=== PATIENT | male | born 1950 | race Caucasian/White ===

== ENCOUNTER → 2017-01-11 | Outpatient (CLI) | payer MEDICARE ==
[~2017-01-11] MED LIST: AMLO5TAB2 PO; ASPI-110 PO; ATOR40TA16 PO; BACT800T5 PO; CEPH-460 PO; HYDR-3516 PO; LISI10TA3 PO; METH500T3 PO
[2017-01-11 07:20] LABS: BLOOD UREA NITROGEN 15 MG/DL (7-18)
[2017-01-11 07:21] LABS: ALT (GPT) 25 U/L (12-78); ANION GAP 8 MEQ/L (5-15); AST (GOT) 18 U/L (15-37); BICARBONATE 28.4 MEQ/L (21.0-32.0); CHLORIDE 107 MEQ/L (98-107); GLOMERULAR FILTRATION RATE 64 ML/MIN (>89); GLUCOSE,FASTING 118 MG/DL (74-99); SODIUM (NA) 143 MEQ/L (136-145)
[2017-01-11 07:23] LABS: ALKALINE PHOSPHATASE 89 U/L (45-117); CREATINE KINASE 111 U/L (39-308); HDL CHOLESTEROL 44.8 MG/DL (40.0-60.0); LDL CHOLESTEROL 31 MG/DL (0-99); TOTAL BILIRUBIN ADULT 0.5 MG/DL (0.2-1.0)
== END ==
LOC: CLAB 06:33
PROVIDERS: ATTEND Internal Medicine Cardiovascular Disease
DX: E78.5 Hyperlipidemia, unspecified (principal); I10 Essential (primary) hypertension
CPT/HCPCS: 36415; 80053; 80061; 82550

== ENCOUNTER 2017-01-25 09:06 | Emergency (ER) | payer MEDICARE ==
[~2017-01-25] VITALS: Ht 180.3 cm; Wt 100.0 kg
[~2017-01-25 09:06] MED LIST changes: -BACT800T5 PO; -CEPH-460 PO
[2017-01-25 09:10] VITALS: BP 134/86; PULSE 59; RESP 16; TEMP 98.6; O2SAT 98
[2017-01-25] MEDS ORDERED: BACT800T5 PO (09:37)
--- NOTE | 2017-01-25 09:40 | PD ---
HPI Chief Complaint: Lump, Cyst, Hernia Time Seen by Provider: 09:31 Travel History International Travel<30 days: No Contact w/Intl Traveler<30days: No Traveled to known affect area: No History of Present Illness HPI Patient is a 66-year-old male presenting to emergency for evaluation of right neck swelling. Patient states it started out as a pea-sized growth which it had been for several months, since then over the last 2-3 days to discuss and larger. Patient states it feels uncomfortable but denies any significant pain. He denies any dysphagia but notices it when he swallows. He denies any recent illnesses, fevers, chills, head colds. PFSH Past Medical History Hx Anticoagulant Therapy: Yes (ASPIRIN 81 MG ) Asthma: No Blood Disorders: No Anxiety: No Depression: No Cancer: No Cardiovascular Problems: Yes (CABG) High Cholesterol: Yes Chemotherapy: No Chest Pain: Yes COPD: No Diabetes: No Diminished Hearing: Yes (right ear) Endocrine: No GERD: Yes Genitourinary: No Hepatitis: Yes (HEP A- 2002) Hypertension: Yes Immune Disorder: No Kidney Stones: Yes Musculoskeletal: No Neurologic: No Psychiatric: No Reproductive: No Respiratory: No Pneumonia: Yes Radiation Therapy: No Sleep Apnea: No Thyroid Disease: No Past Surgical History Cardiac Surgery: Yes (CABG april 12, 2015) Tonsillectomy: Yes Other Surgery: Yes (lithotripsy-1979) Social History Alcohol Use: No Tobacco Use: No Substance Use: No Allergies-Medications (Allergen,Severity, Reaction): Coded Allergies: Penicillin (Verified Allergy, Severe, 11/05/16) Shellfish (Verified Allergy, Unknown, 11/05/16) Uncoded Allergies: Silk Tape (Allergy, Severe, Irritation, 04/15/15) Reported Meds & Prescriptions Reported Meds & Active Scripts Active Hydrocodone-Acetaminophen 5-325 mg Tab 1 Tab PO Q4H PRN Methocarbamol 500 Mg Tab 750 Mg PO Q8HR PRN Reported Atorvastatin (Atorvastatin Calcium) 40 Mg Tab 40 Mg PO HS Aspirin 81 (Aspirin) 81 Mg Tabdr 81 Mg PO DAILY Amlodipine (Amlodipine Besylate) 5 Mg Tab 5 Mg PO DAILY Lisinopril 10 Mg Tab 10 Mg PO DAILY Review of Systems Except as stated in HPI: all other systems reviewed are Neg General / Constitutional: No: Fever, Chills Skin: Positive Lumps Physical Exam Narrative GENERAL: Well-nourished, well-developed patient. SKIN: Focused skin assessment warm/dry. HEAD: Normocephalic. Right submandibular lymphadenopathy. Airway is patent. EYES: No scleral icterus. No injection or drainage. NECK: Supple, trachea midline. No JVD or lymphadenopathy. CARDIOVASCULAR: Regular rate and rhythm without murmurs, gallops, or rubs. RESPIRATORY: Breath sounds equal bilaterally. No accessory muscle use. GASTROINTESTINAL: Abdomen soft, non-tender, nondistended. MUSCULOSKELETAL: No cyanosis, or edema. BACK: Nontender without obvious deformity. No CVA tenderness. Data Data Last Documented VS Vital Signs Date Time Temp Pulse Resp B/P Pulse Ox O2 Delivery O2 Flow Rate FiO2 01/25/17 09:10 98.6 59 16 134/86 98 [facility] Medical Decision Making Medical Screen Exam Complete: Yes Emergency Medical Condition: Yes Interpretation(s) Vital Signs Date Time Temp Pulse Resp B/P Pulse Ox O2 Delivery O2 Flow Rate FiO2 01/25/17 09:10 98.6 59 16 134/86 98 Differential Diagnosis Lymphadenitis versus blocked salivary gland versus parotitis Narrative Course Patient is a 66-year-old male presenting to emergency for evaluation of right neck swelling. Patient has historically had a pea-sized since Saturday discussed larger and slightly uncomfortable. Physical examination appears consistent with an enlarged lymph node however blocked salivary gland cannot be excluded so patient will be treated for both possible diagnosis is. He was advised to obtain hard sour candies to increase saliva production. He will also be given a prescription for antibiotics. He was advised to follow-up with his primary doctor for possible biopsy if the swelling did not improve with antibiotic therapy. He was given the flyer for the [place] [facility] if he is unable to get in with his primary. Patient verbalized understanding of these instructions. Patient is stable for discharge. Diagnosis Primary Impression: Lymphadenitis Referrals: Primary Care Physician 1 week Patient Instructions: General Instructions, Lymphadenopathy (ED), Parotid Duct Obstruction (ED) Additional Instructions: Suck on hard sour candies such as lemon drops to increase saliva production Complete full course of antibiotics as directed Follow-up with your primary doctor Return to emergency department for any new or worsening symptoms Med/Other Pt SpecificInfo: Prescription(s) given Scripts Sulfamethoxazole-Trimethoprim (Bactrim DS)800-160 Mg Tab1 Tab PO BID #20 TAB Ref 0 Prov:Zee Bueno 01/25/17 Disposition: 01 DISCHARGE HOME Condition: Stable Zee Bueno Jan 25, 2017 09:39
--- NOTE | 2017-01-25 09:47 | PD ---
Data Data Last Documented VS Vital Signs Date Time Temp Pulse Resp B/P Pulse Ox O2 Delivery O2 Flow Rate FiO2 01/25/17 09:10 98.6 59 16 134/86 98 MDM Supervised Visit with SCARLET: Yes Narrative Course I, Dr. Fan, have reviewed the advance practice practioner's documentation and am in agreement, met with the patient face to face, made the diagnosis, and the medical decision making was done by me. *My assessment and Findings: 66-year-old male here with right neck swelling. Pea-sized area on the right submandibular region increasing over the last 2-3 days. Now approximately 2-3 cm on exam. Only minimally tender to palpation. It is not erythematous. The floor the mouth is soft. Differential includes sialoadenitis versus lymphadenopathy versus cancer. Patient will be discharged home with instructions for sore candies, lemon drops and antibiotics. Outpatient PCP follow-up for biopsy if this is not improved to rule out cancer. Diagnosis Primary Impression: Lymphadenitis Referrals: Primary Care Physician 1 week Patient Instructions: General Instructions, Lymphadenopathy (ED), Parotid Duct Obstruction (ED) Departure Forms: Tests/Procedures Additional Instruction: Suck on hard sour candies such as lemon drops to increase saliva production Complete full course of antibiotics as directed Follow-up with your primary doctor Return to emergency department for any new or worsening symptoms Scripts Sulfamethoxazole-Trimethoprim (Bactrim DS)800-160 Mg Tab1 Tab PO BID #20 TAB Ref 0 Prov:MylesZee 01/25/17 Disposition: 01 DISCHARGE HOME Condition: Stable Rachelle Fan MD Jan 25, 2017 09:47
== END 2017-01-25 09:49 | disposition home or self-care (01) ==
LOC: NEPD 09:06
DX: I88.9 Nonspecific lymphadenitis, unspecified (principal)
CPT/HCPCS: 99283

== ENCOUNTER 2017-02-01 07:21 | Emergency (ER) | payer MEDICARE ==
[~2017-02-01] VITALS: Ht 180.3 cm; Wt 112.0 kg
[~2017-02-01 07:21] MED LIST changes: +BACT800T5 PO
[2017-02-01 07:24] VITALS: BP 187/84; PULSE 52; RESP 17; TEMP 99; O2SAT 97
[2017-02-01] MEDS ORDERED: SODIUM CHLOR 0.9% 1000 ML INJ 1,000 ML IV ONE (08:00)
[2017-02-01 08:19] LABS: AUTOMATED NEUTROPHIL # 3.6 TH/MM3 (1.8-7.7); BASOPHIL # 0.1 TH/MM3 (0-0.2); BASOPHIL % 1.1 % (0.0-2.0); EOSINOPHIL # 0.1 TH/MM3 (0-0.4); EOSINOPHIL % 1.9 % (0.0-4.0); HEMATOCRIT 37.7 % (39.0-51.0); HEMO FLAGS DIFF FINAL; LYMPH % 20.3 % (9.0-44.0); LYMPHOCYTE # 1.1 TH/MM3 (1.0-4.8); MEAN CELL VOLUME 86.2 FL (80.0-100.0); MEAN CORPUSCULAR HEMOGLOBIN 30.3 PG (27.0-34.0); MEAN CORPUSCULAR HGB CONC 35.1 % (32.0-36.0); MONO % 9.8 % (0.0-8.0); NEUT % 66.9 % (16.0-70.0); PLATELET COUNT 150 TH/MM3 (150-450); RED BLOOD COUNT 4.37 MIL/MM3 (4.50-5.90); RED CELL DISTRIBUTION WIDTH 12.9 % (11.6-17.2); WHITE BLOOD COUNT 5.4 TH/MM3 (4.0-11.0)
--- NOTE | 2017-02-01 08:24 | PD ---
HPI Chief Complaint: Edema Time Seen by Provider: 07:35 Travel History International Travel<30 days: No Contact w/Intl Traveler<30days: No Traveled to known affect area: No History of Present Illness HPI Is a 66-year-old man who presents to the emergency department right sided Is been ongoing for the past week or so. He states he had a small pea-like mass that been her for years. Over the past week or 2 weeks it had progressive swelling. He does describe it is tender. Continue to enlarge and is now having difficulty swallowing. He's not had any constitutional symptoms such as night sweats fevers weight loss. No recent travel. No history of tobacco use. No history of previous similar problems. He was seen in the emergency department one week ago and was salty either have lymphadenitis or sialolithiasis adenitis sialoadenitis. He was given a prescription for Bactrim , and has been using lemon drops without significant relief. He had progressive worsening of the swelling and so he came into the emergency department today. History Past Medical History Narrative Medical CAD, history of CABG Hypertension on hyperlipidemia Tetanus Vaccination: < 5 Years Influenza Vaccination: No Social History Alcohol Use: Yes (RARE) Tobacco Use: No Allergies-Medications (Allergen,Severity, Reaction): Coded Allergies: Penicillin (Verified Allergy, Severe, 02/01/17) Shellfish (Verified Allergy, Unknown, rash, 02/01/17) Uncoded Allergies: Silk Tape (Allergy, Severe, Irritation, 04/15/15) Reported Meds & Prescriptions Reported Meds & Active Scripts Active Bactrim DS (Sulfamethoxazole-Trimethoprim) 800-160 Mg Tab 1 Tab PO BID Hydrocodone-Acetaminophen 5-325 mg Tab 1 Tab PO Q4H PRN Methocarbamol 500 Mg Tab 750 Mg PO Q8HR PRN Reported Atorvastatin (Atorvastatin Calcium) 40 Mg Tab 40 Mg PO HS Aspirin 81 (Aspirin) 81 Mg Tabdr 81 Mg PO DAILY Amlodipine (Amlodipine Besylate) 5 Mg Tab 5 Mg PO DAILY Lisinopril 10 Mg Tab 10 Mg PO DAILY Review of Systems Except as stated in HPI: all other systems reviewed are Neg Physical Exam Narrative GENERAL: Well-appearing 66-year-old man, no acute distress. SKIN: Focused skin assessment warm/dry. HEAD: Atraumatic. Normocephalic. EYES: Pupils equal and round. No scleral icterus. No injection or drainage. ENT: No nasal bleeding or discharge. Mucous membranes pink and moist. NECK: Trachea midline. Palpable large mass in the anterior cervical chain up near the angle of the mandible. Is appears to be below the mandible and not submandibular. Minimally tender. No erythema warmth or redness. CARDIOVASCULAR: Regular rate and rhythm. No murmur appreciated. RESPIRATORY: No accessory muscle use. Clear to auscultation. Breath sounds equal bilaterally. GASTROINTESTINAL: Abdomen soft, non-tender, nondistended. Hepatic and splenic margins not palpable. MUSCULOSKELETAL: No obvious deformities. No edema. NEUROLOGICAL: Awake and alert. No obvious cranial nerve deficits. Motor grossly within normal limits. Normal speech. LYMPH: No other appreciable adenopathy in the supraclavicular, axillary, epitrochlear, or inguinal change. Data Data Last Documented VS Vital Signs Date Time Temp Pulse Resp B/P Pulse Ox O2 Delivery O2 Flow Rate FiO2 02/01/17 07:38 16 98 Room Air 02/01/17 07:24 99.0 52 187/84 Orders Complete Blood Count With Diff (02/01/17 07:50) Comprehensive Metabolic Panel (02/01/17 07:50) Ct Soft Tiss Neck W Iv Cont (02/01/17 ) Iv Access Insert/Monitor (02/01/17 07:50) Sodium Chlor 0.9% 1000 Ml Inj (Ns 1000 M (02/01/17 08:00) Iohexol 350 Inj (Omnipaque 350 Inj) (02/01/17 08:52) Labs Laboratory Tests Test 02/01/17 07:50 White Blood Count 5.4 TH/MM3 Red Blood Count 4.37 MIL/MM3 Hemoglobin 13.2 GM/DL Hematocrit 37.7 % Mean Corpuscular Volume 86.2 FL Mean Corpuscular Hemoglobin 30.3 PG Mean Corpuscular Hemoglobin 35.1 % Concent Red Cell Distribution Width 12.9 % Platelet Count 150 TH/MM3 Mean Platelet Volume 9.6 FL Neutrophils (%) (Auto) 66.9 % Lymphocytes (%) (Auto) 20.3 % Monocytes (%) (Auto) 9.8 % Eosinophils (%) (Auto) 1.9 % Basophils (%) (Auto) 1.1 % Neutrophils # (Auto) 3.6 TH/MM3 Lymphocytes # (Auto) 1.1 TH/MM3 Monocytes # (Auto) 0.5 TH/MM3 Eosinophils # (Auto) 0.1 TH/MM3 Basophils # (Auto) 0.1 TH/MM3 CBC Comment DIFF FINAL Differential Comment Sodium Level 142 MEQ/L Potassium Level 3.9 MEQ/L Chloride Level 109 MEQ/L Carbon Dioxide Level 25.1 MEQ/L Anion Gap 8 MEQ/L Blood Urea Nitrogen 19 MG/DL Creatinine 1.34 MG/DL Estimat Glomerular Filtration 53 ML/MIN Rate Random Glucose 144 MG/DL Calcium Level 8.6 MG/DL Total Bilirubin 0.5 MG/DL Aspartate Amino Transf 19 U/L (AST/SGOT) Alanine Aminotransferase 23 U/L (ALT/SGPT) Alkaline Phosphatase 81 U/L Total Protein 6.1 GM/DL Albumin 3.5 GM/DL [facility] Medical Decision Making Medical Screen Exam Complete: Yes Emergency Medical Condition: Yes Interpretation(s) LABS: CBC unremarkable. CMP remarkable for mildly elevated BUN/creatinine. CT neck: I spoke with Dr. Dixon on the phone. Sialoadenitis. No stone seen. Differential Diagnosis Adenitis, sialoadenitis, lymphoma, Scratch disease, other Narrative Course Medical decision making INITIAL cause a 66 year-old man who presents emergency Department with swollen mass in his neck but progressively enlarging. It is a little bit tender. Suspect adenitis. We'll check labs, imaging, reassess. Diagnosis Primary Impression: Sialoadenitis of submandibular gland Additional Instructions: Continue sour candies as discussed. Take Keflex instead of Bactrim for one week. Follow-up with her primary doctor in one week if not completely improved. If he had any persistent pain or fullness in your neck he need follow-up. Return to the emergency department for any new or worsening symptoms. Med/Other Pt SpecificInfo: Prescription(s) given Scripts Cephalexin (Keflex)500 Mg Nci956 Mg PO Q8H 7 Days Ref 0 Prov:Gelacio Asencio MD 02/01/17 Disposition: 01 DISCHARGE HOME Condition: Stable Gelacio Asencio MD Feb 01, 2017 08:24
[2017-02-01 08:33] LABS: ALT (GPT) 23 U/L (12-78); ANION GAP 8 MEQ/L (5-15); AST (GOT) 19 U/L (15-37); BICARBONATE 25.1 MEQ/L (21.0-32.0); BLOOD UREA NITROGEN 19 MG/DL (7-18); CHLORIDE 109 MEQ/L (98-107); GLOMERULAR FILTRATION RATE 53 ML/MIN (>89); POTASSIUM 3.9 MEQ/L (3.5-5.1); SODIUM (NA) 142 MEQ/L (136-145)
[2017-02-01 08:35] LABS: ALKALINE PHOSPHATASE 81 U/L (45-117); TOTAL BILIRUBIN ADULT 0.5 MG/DL (0.2-1.0)
[2017-02-01] MEDS ORDERED: IOHEXOL 350 MG/ML 10 ML VIAL (for RAD DIAG) IV ONE (08:52)
--- NOTE | 2017-02-01 09:37 | RADRPT ---
EXAM DATE/TIME: 02/01/2017 08:40 [facility] COMPARISON: No previous studies available for comparison. INDICATIONS : Right neck swelling, trouble swallowing. IV CONTRAST: 70 cc Omnipaque 350 (iohexol) IV RADIATION DOSE: 15.70 CTDIvol (mGy) MEDICAL HISTORY : Hypertension. SURGICAL HISTORY : CABG Tonsillectomy. ENCOUNTER: Initial ACUITY: 1 week PAIN SCALE: 3/10 LOCATION: Right neck TECHNIQUE: Volumetric scanning of the neck was performed. Using automated exposure control and adjustment of th e mA and/or kV according to patient size, radiation dose was kept as low as reasonably achievable to obtain optimal diagnostic quality images. FINDINGS: There is marked soft tissue swelling about the right submandibular gland. There is very minimal nons pecific adenopathy in the right neck. The left neck appears unremarkable. Nasopharynx and oropharyn x unremarkable. CONCLUSION: Marked soft tissue swelling about the right submandibular gland thought to sialadenitis. I do not se e evidence for a stone. Neoplastic process is thought to be less likely. Keven Dixon MD FACR on February 01, 2017 at 9:26 Board Certified Radiologist. This report was verified electronically.
[2017-02-01] MEDS ORDERED: CEPH-460 PO (09:42)
[2017-02-01 09:48] VITALS: BP 130/77; TEMP 97.8
== END 2017-02-01 09:48 | disposition home or self-care (01) ==
LOC: NEPE 07:21
DX: K11.20 Sialoadenitis, unspecified (principal)
CPT/HCPCS: 70491; 80053; 85025; 96360; 99284; J7030; Q9967

== ENCOUNTER → 2017-06-03 | Outpatient (CLI) | payer MEDICARE ==
[~2017-06-03] MED LIST changes: +CEPH-460 PO
[2017-06-03 08:10] LABS: ANION GAP 7 MEQ/L (5-15); AST (GOT) 13 U/L (15-37); BICARBONATE 28.2 MEQ/L (21.0-32.0); BLOOD UREA NITROGEN 22 MG/DL (7-18); CHLORIDE 102 MEQ/L (98-107); GLOMERULAR FILTRATION RATE 55 ML/MIN (>89); GLUCOSE,FASTING 132 MG/DL (74-99); POTASSIUM 3.8 MEQ/L (3.5-5.1); SODIUM (NA) 137 MEQ/L (136-145)
[2017-06-03 08:15] LABS: ALKALINE PHOSPHATASE 84 U/L (45-117); ALT (GPT) 26 U/L (12-78); CREATINE KINASE 124 U/L (39-308); HDL CHOLESTEROL 44.8 MG/DL (40.0-60.0); LDL CHOLESTEROL 36 MG/DL (0-99); TOTAL BILIRUBIN ADULT 0.8 MG/DL (0.2-1.0)
== END ==
LOC: CLAB 07:04
PROVIDERS: ATTEND Internal Medicine Cardiovascular Disease
DX: E78.5 Hyperlipidemia, unspecified (principal); I10 Essential (primary) hypertension; R73.03 Prediabetes
CPT/HCPCS: 36415; 80053; 80061; 82550

== ENCOUNTER 2017-10-06 13:05 | Emergency (ER) | payer MEDICARE ==
[~2017-10-06] VITALS: Ht 177.8 cm; Wt 95.0 kg
[~2017-10-06 13:05] MED LIST changes: -ASPI-110 PO; +ASPI1TAB57 PO
[2017-10-06 13:12] VITALS: BP 163/85; PULSE 48; RESP 18; TEMP 98.5; O2SAT 99
[2017-10-06] MEDS ORDERED: ACETAMINOPHEN/HYDROcodone 325 MG/5 MG TAB PO ONE (13:30)
--- NOTE | 2017-10-06 13:41 | PD ---
HPI Chief Complaint: Fall Time Seen by Provider: 13:17 Travel History International Travel<30 days: No Contact w/Intl Traveler<30days: No Traveled to known affect area: No History of Present Illness HPI 67-year-old male presents to the emergency department complaining of right hip pain after tripping over a bag and falling and landing on his right hip today. Denies hitting head or loss of consciousness. Denies neck pain or back pain. Was able to get up and ambulate afterwards, but reports severe pain with ambulation. Denies paresthesias, loss of sensation to the affected extremity. Denies chest pain, shortness breath, abdominal pain, vomiting. Denies anticoagulant therapy. Says he can't rate his pain because he is not good with pain. Symptoms are moderate in severity. Pain is aggravated with ambulation and movement. No known relieving factors. Has not taken any medications or tried any treatments to be the symptoms. History of hypertension and open heart surgery. Take baby aspirin and lisinopril. Allergies to Septra, penicillin, shellfish. No established primary care provider. Has no other medical complaints. No other modifying factors or associated signs and symptoms. PFSH Past Medical History Hx Anticoagulant Therapy: Yes (ASA) Asthma: No Blood Disorders: No Anxiety: No Depression: No Cancer: No Cardiovascular Problems: Yes (BYPASS) High Cholesterol: Yes Chemotherapy: No Chest Pain: Yes COPD: No Diabetes: No Diminished Hearing: Yes (right ear) Endocrine: No GERD: Yes Genitourinary: No Hepatitis: Yes (HEP A- 2003) Hypertension: Yes Immune Disorder: No Kidney Stones: Yes Musculoskeletal: No Neurologic: No Psychiatric: No Reproductive: No Respiratory: No Pneumonia: Yes Radiation Therapy: No Sleep Apnea: No Thyroid Disease: No Past Surgical History Cardiac Surgery: Yes (CABG april 12, 2015) Tonsillectomy: Yes Other Surgery: Yes (lithotripsy-1979) Social History Alcohol Use: Yes (RARE) Tobacco Use: No Substance Use: No Allergies-Medications (Allergen,Severity, Reaction): Coded Allergies: penicillin G (Unverified Allergy, Severe, 10/06/17) shellfish derived (Unverified Allergy, Unknown, rash, 10/06/17) Uncoded Allergies: Silk Tape (Allergy, Severe, Irritation, 04/15/15) Reported Meds & Prescriptions Reported Meds & Active Scripts Active Walker/Adult/Folding (Device) 1 Mis Mis Ea .ROUTE DIRECTED [place] (Hydrocodone-Acetaminophen) 5 Mg-325 Mg Tab 1 Tab PO Q4H PRN Reported Atorvastatin (Atorvastatin Calcium) 40 Mg Tab 40 Mg PO HS Aspirin 81 (Aspirin) 81 Mg Tabdr 81 Mg PO DAILY Amlodipine (Amlodipine Besylate) 5 Mg Tab 5 Mg PO DAILY Lisinopril 10 Mg Tab 10 Mg PO DAILY Review of Systems Except as stated in HPI: all other systems reviewed are Neg Physical Exam Narrative GENERAL: Well-nourished, well-developed male patient, in no acute distress; afebrile, nontoxic-appearing SKIN: Warm and dry. HEAD: Atraumatic. Normocephalic. EYES: Pupils equal and round. No scleral icterus. No injection or drainage. ENT: Mucosa pink and moist. Airway patent. NECK: Moving freely. Trachea midline. CARDIOVASCULAR: Regular rate and rhythm. No murmur appreciated. RESPIRATORY: No accessory muscle use. Lungs sounds clear and equal bilaterally. GASTROINTESTINAL: Abdomen soft, non-tender, nondistended. Positive bowel sounds. No hepato-splenomegaly, or palpable masses. No guarding. MUSCULOSKELETAL: Right hip with limited range of motion; with tenderness on abduction; without erythema, edema, ecchymosis; no obvious deformity; no leg length discrepancy. Right lower extremity is supple and non-tense with 2+ pedal pulse and sensory intact and without erythema or edema. BACK: No point tenderness on palpation of the cervical, thoracic, lumbar spine. NEUROLOGICAL: Awake and alert. Oriented 3. No obvious cranial nerve deficits. Motor grossly within normal limits. Normal speech. PSYCHIATRIC: Appropriate mood and affect; insight and judgment normal. Data Data Last Documented VS Vital Signs Date Time Temp Pulse Resp B/P (MAP) Pulse Ox O2 Delivery O2 Flow Rate FiO2 10/06/17 13:12 98.5 48 18 163/85 (111) 99 Orders Orders Hip, Uni(Ap&Lat) W Ap Pelvis (10/06/17 13:23) Acetamin-Hydrocod 325-5 Mg ([place] 5-325 (10/06/17 13:30) Ct Hip W/O Contrast (10/06/17 ) Crutches (10/06/17 15:39) Ed Discharge Order (10/06/17 15:45) Fiberglass Short Leg Splint Ad (10/06/17 ) Fiberglass Sugartong Sp Ad Sl (10/06/17 ) [facility] Medical Decision Making Medical Screen Exam Complete: Yes Emergency Medical Condition: Yes Medical Record Reviewed: Yes Differential Diagnosis Hip fracture, hip contusion, fall Narrative Course 67-year-old male with right hip pain after mechanical fall today. Denies hitting his head or loss of consciousness. Denies neck pain or back pain. 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 Denies lightheaded, dizzy, chest pain, shortness of breath, syncope. Right hip with AP pelvis x-ray ordered. [place] ordered. 1412: Right hip with AP pelvis x-ray concludes: Hip and Pelvis X-Ray 10/06/17 1323 Signed Impressions: Service Date/Time: Friday, October 06, 2017 13:35 - CONCLUSION: Fracturing in the right greater trochanter region. A CT examination may be helpful to determine the exact extent of the fracturing. Cristo Cardona MD Right hip CT ordered. 1509: CT right hip concludes: Lower Extremity CT 10/06/17 0000 Signed Impressions: Service Date/Time: Friday, October 06, 2017 14:24 - CONCLUSION: Fracturing at the base of the right greater trochanter. Cristo Cardona MD CT scan findings discussed with the patient. Call placed to orthopedic surgeon , Dr. Townsend. 1535: I spoke with Dr. Townsend, orthopedic surgeon and she recommended no weight bearing with a walker and follow up in her office. Crutches provided for support. [place] prescribed for home. Instructed patient to follow up with Dr. Townsend or orthopedic surgeon of choice. Instructed patient to follow up with primary care provider. Patient verbalizes understanding and agreement with treatment plan. Patient is medically cleared and stable for discharge. Discussed reasons to return to the emergency department. Patient agrees with treatment plan. The patients vital signs are stable and the patient is stable for outpatient follow-up and treatment. Patient discharged home, stable and in no acute distress. Diagnosis Primary Impression: Greater trochanter fracture Qualified Codes: S72.114A - Nondisplaced fracture of greater trochanter of right femur, initial encounter for closed fracture Referrals: Dilia Townsend MD Orthopaedic Surgeon Primary Care Physician Patient Instructions: Crutch Instructions (ED), General Instructions, Hip Fracture (ED) Additional Instructions: Tylenol or ibuprofen as directed and as needed for pain and inflammation Rest, ice, compress, and elevate extremity to decrease pain and inflammation Crutches and/or walker for support Do not bear weight on the affected extremity until instructed by orthopedic surgeon Avoid aggravating activity; increase activity as tolerated Follow-up with primary care provider Follow-up with orthopedic surgeon; Dr. Townsend is our orthopedic surgeon on-call and her contact information is provided in her discharge instructions Return to the emergency department immediately with worsening of symptoms Med/Other Pt SpecificInfo: Prescription(s) given Scripts Walker/Adult/Folding (Walker/Adult/Folding) 1 Mis Mis EA .ROUTE DIRECTED, #1 0 Refills Prov: Caroline Lutz 10/06/17 Hydrocodone-Acetaminophen ([place]) 5 Mg-325 Mg Tab 1 TAB PO Q4H Y for PAIN, #28 TAB 0 Refills Prov: Caroline Lutz 10/06/17 Disposition: 01 DISCHARGE HOME Condition: Stable Caroline Lutz Oct 06, 2017 13:41
--- NOTE | 2017-10-06 13:57 | RADRPT ---
EXAM DATE/TIME: 10/06/2017 13:35 [facility] COMPARISON: No previous studies available for comparison. INDICATIONS : Fall today. MEDICAL HISTORY : Hypertension. SURGICAL HISTORY : CABG. Tonsillectomy. ENCOUNTER: Initial ACUITY: 1 day PAIN SCORE: 8/10 LOCATION: Right hip. FINDINGS: There is fracturing seen at the superior lateral aspect of the femoral neck at the junction with the greater trochanter. Fracture lines can only be seen in the greater trochanter region. The hip joint i s normally aligned. CONCLUSION: Fracturing in the right greater trochanter region. A CT examination may be helpful to determine the e xact extent of the fracturing. Cristo Cardona MD on October 06, 2017 at 13:53 Board Certified Radiologist. This report was verified electronically.
--- NOTE | 2017-10-06 15:02 | RADRPT ---
EXAM DATE/TIME: 10/06/2017 14:24 [facility] COMPARISON: HIP RIGHT (AP&LAT 2/3VWS) W AP PELVIS, October 06, 2017, 13:35. INDICATIONS : Fall, right hip pain. RADIATION DOSE: 44.05 CTDIvol (mGy) ; Patient body habitus MEDICAL HISTORY : Cardiovascular disease. Hypertension. Gastroesophageal reflux disease.Hep A SURGICAL HISTORY : Lithotripsy ENCOUNTER: Initial ACUITY: 1 day PAIN SCALE: 8/10 LOCATION: Right hip TECHNIQUE: Volumetric scanning of the hip was performed. Using automated exposure control and adjustment of the mA and/or kV according to patient size, radiation dose was kept as low as reasonably achievable to o btain optimal diagnostic quality images. DICOM format image data is available electronically for rev iew and comparison. FINDINGS: BONES: There is fracturing at the base of the right greater trochanter. No other fractures are seen. There i s degenerative change in the lower lumbar spine. JOINTS: No evidence of joint narrowing or effusion. SOFT TISSUES: Muscles, tendons and neurovascular structures are grossly unremarkable. No evidence of mass, organize d fluid collection, or foreign body. CONCLUSION: Fracturing at the base of the right greater trochanter. Cristo Cardona MD on October 06, 2017 at 14:59 Board Certified Radiologist. This report was verified electronically.
[2017-10-06] MEDS ORDERED: WALKER/ADULT/FO1 MIS (15:37)
[2017-10-06] MEDS ORDERED: NORC5TAB PO (15:37)
== END 2017-10-06 15:52 | disposition home or self-care (01) ==
LOC: NEPD 13:05
DX: S72.111A Displaced fracture of greater trochanter of right femur, initial encounter for closed fracture (principal); I10 Essential (primary) hypertension; E78.00 Pure hypercholesterolemia, unspecified; K21.9 Gastro-esophageal reflux disease without esophagitis; W18.30XA Fall on same level, unspecified, initial encounter; Z87.442 Personal history of urinary calculi; Z79.82 Long term (current) use of aspirin; Z79.899 Other long term (current) drug therapy
CPT/HCPCS: 73502; 73700; 99284

== ENCOUNTER 2018-02-02 16:13 | Emergency (ER) | payer MEDICARE ==
[~2018-02-02] VITALS: Ht 180.3 cm; Wt 89.0 kg
[~2018-02-02 16:13] MED LIST changes: -BACT800T5 PO; -CEPH-460 PO; -HYDR-3516 PO; -METH500T3 PO; +NORC5TAB PO; +WALKER/ADULT/FO1 MIS
[2018-02-02 16:21] VITALS: BP 111/62; PULSE 81; RESP 18; TEMP 102.8; O2SAT 95
[2018-02-02] MEDS ORDERED: ACETAMINOPHEN 325 MG TAB PO ONE (16:30)
[2018-02-02] MEDS ORDERED: SODIUM CHLOR 0.9% 1000 ML INJ 1,000 ML IV ONE ×2 (16:39)
[2018-02-02 16:45] VITALS: BP 120/58; PULSE 65; RESP 18; O2SAT 96; O2SAT 97
[2018-02-02] MEDS ORDERED: IBUP1TAB7 PO (17:08)
--- NOTE | 2018-02-02 17:14 | PD ---
Physical Exam Date Seen by Provider: Feb 02, 2018 Narrative This patient presents with the chief complaint of dizziness. He also has a fever and urinary incontinence. Data Data Last Documented VS Vital Signs Date Time Temp Pulse Resp B/P (MAP) Pulse Ox O2 Delivery O2 Flow Rate FiO2 02/02/18 16:45 96 Room Air 02/02/18 16:45 67 18 02/02/18 16:45 120/58 (78) 02/02/18 16:21 102.8 Orders Orders Sepsis Workup Initiated (02/02/18 ) Complete Blood Count With Diff (02/02/18 16:28) Comprehensive Metabolic Panel (02/02/18 16:28) Prothrombin Time / Inr (Pt) (02/02/18 16:28) Act Partial Throm Time (Ptt) (02/02/18 16:28) Lactic Acid Sepsis Protocol (02/02/18 16:28) Magnesium (Mg) (02/02/18 16:28) Lipase (02/02/18 16:28) Ckmb (Isoenzyme) Profile (02/02/18 16:28) Troponin I (02/02/18 16:28) Urinalysis - C+S If Indicated (02/02/18 16:28) Blood Culture (02/02/18 16:28) Chest, Single Ap (02/02/18 16:28) Blood Glucose (02/02/18 16:28) Ecg Monitoring (02/02/18 16:28) Iv Access Insert/Monitor (02/02/18 16:28) Oximetry (02/02/18 16:28) Oxygen Administration (02/02/18 16:28) Acetaminophen (Tylenol) (02/02/18 16:30) Ct Brain W/O Iv Contrast(Rout) (02/02/18 16:28) Sodium Chlor 0.9% 1000 Ml Inj (Ns 1000 M (02/02/18 16:39) Sodium Chlor 0.9% 1000 Ml Inj (Ns 1000 M (02/02/18 16:39) Ct Cerv Spine W/O Contrast (02/02/18 ) MDM Supervised Visit with SCARLET: Yes Interpretation(s) EKG shows a sinus rhythm with Q waves in II, III and aVF. No acute ischemic changes noted. Narrative Course I, Dr. Wolfe, have reviewed the advance practice practitioner's documentation and am in agreement, met with the patient face to face, made the diagnosis, and the medical decision making was done by me. *My assessment and Findings: Vital Signs Date Time Temp Pulse Resp B/P (MAP) Pulse Ox O2 Delivery O2 Flow Rate FiO2 02/02/18 16:45 96 Room Air 02/02/18 16:45 67 18 98 Room Air 02/02/18 16:45 65 18 120/58 (78) 97 Room Air 02/02/18 16:45 96 Room Air 02/02/18 16:21 102.8 81 18 111/62 (78) 95 He is lucid. He is attempting to obtain a urine specimen for us. If he is not successful with this, we will cath him. See Prasad Alfredo note for lab and radiology results, final diagnosis and disposition Fany Wolfe MD Feb 02, 2018 17:14
--- NOTE | 2018-02-02 17:27 | RADRPT ---
EXAM DATE/TIME: 02/02/2018 16:44 [facility] COMPARISON: CHEST SINGLE AP, April 14, 2016, 0:35. INDICATIONS : Fever, nausea, and dizziness. MEDICAL HISTORY : Hypertension. Renal calculi. Hepatitis A. GERD. Pneumonia. SURGICAL HISTORY : Tonsillectomy. Lithotripsy. Open heart surgery. ENCOUNTER: Initial ACUITY: 2 days PAIN SCORE: 0/10 LOCATION: Bilateral chest FINDINGS: Stable postsurgical features of median sternotomy. No significant new focal pleural or parenchymal op acities. Cardiomediastinal contours are stable. Moderate hiatal hernia. CONCLUSION: 1. No acute abnormality or significant interval change. Davie Peck MD on February 02, 2018 at 17:23 Board Certified Radiologist. This report was verified electronically.
--- NOTE | 2018-02-02 17:28 | RADRPT ---
EXAM DATE/TIME: 02/02/2018 16:51 [facility] COMPARISON: CT BRAIN W/O CONTRAST, April 14, 2016, 1:59. INDICATIONS : Altered mental status. Dizziness, fall. RADIATION DOSE: 56.35 CTDIvol (mGy) MEDICAL HISTORY : Hypertension. Cardiovascular disease SURGICAL HISTORY : CABG ENCOUNTER: Initial ACUITY: 1 day PAIN SCALE: 0/10 LOCATION: cranial TECHNIQUE: Multiple contiguous axial images were obtained of the head. Using automated exposure control and adjustment of the mA and/or kV according to patient size, radiation dose was kept as low as reasonably achievable to obtain optimal diagnostic quality images. DICOM format image data is av ailable electronically for review and comparison. FINDINGS: CEREBRUM: Mild to moderate diffuse cerebral atrophy. Moderate periventricular white matter hypode nsities. The ventricles are normal for degree of atrophy. No evidence of midline shift, mass lesion, hemorrhage or acute infarction. No extra-axial fluid collections are seen. POSTERIOR FOSSA: The cerebellum and brainstem are intact. The 4th ventricle is midline. The cer ebellopontine angle is unremarkable. EXTRACRANIAL: The visualized portion of the orbits is intact. SKULL: The calvaria is intact. No evidence of skull fracture. CONCLUSION: 1. Stable senescent changes with moderate small vessel ischemic periventricular white matter demyelin ation. 2. No acute intracranial abnormality. Davie Peck MD on February 02, 2018 at 17:24 Board Certified Radiologist. This report was verified electronically.
--- NOTE | 2018-02-02 17:33 | RADRPT ---
EXAM DATE/TIME: 02/02/2018 16:51 [facility] COMPARISON: No previous studies available for comparison. INDICATIONS : Trauma, fall. RADIATION DOSE: 19.60 CTDIvol (mGy) MEDICAL HISTORY : Cardiovascular disease. Hypertension. SURGICAL HISTORY : CABG ENCOUNTER: Initial ACUITY: 1 day PAIN SCALE: 0/10 LOCATION: middle TECHNIQUE: Volumetric scanning of the cervical spine was performed. Multiplanar reconstructions in the sagittal, coronal and oblique axial planes were performed. Using automated exposure control and adjustment o f the mA and/or kV according to patient size, radiation dose was kept as low as reasonably achievable to obtain optimal diagnostic quality images. DICOM format image data is available electronically f or review and comparison. FINDINGS: Vertebral body heights are maintained. Osseous structures are intact without evidence for acute bony fracture. Dens is intact. Sagittal alignment is maintained. There is a normal C1-2 relationship. Face ts are normally aligned. There is no significant prevertebral soft tissue hematoma. Degenerative spon dylosis of the lower lumbar spine most prominently at C4-5 and C5-6 with posterior disc osteophytes. There is also multilevel facet arthropathy. Bony central canal is patent. No significant cervical feliciano nopathy or gross mass. The thyroid appears unremarkable. Visualized lung apices are clear without pne umothorax. CONCLUSION: 1. No acute fracture or subluxation.\ 2. Degenerative spondylosis of the cervical spine most prominently at C4-6. Davie Peck MD on February 02, 2018 at 17:28 Board Certified Radiologist. This report was verified electronically.
--- NOTE | 2018-02-02 17:33 | PD ---
HPI Chief Complaint: Fever Time Seen by Provider: 16:27 Travel History International Travel<30 days: No Contact w/Intl Traveler<30days: No Traveled to known affect area: No History of Present Illness HPI 67-year-old male that presents to the ED for evaluation of high fever and head injury last night. Per patient yesterday he was working on his garage when he fell and hit his head. He states that he did not lose consciousness with fall was not witnessed. He states that he did see [place]. He did hit the face on the floor what was able to stop his fall with his arms but somehow he still hit his head. He states having some neck pain and headache and today they were concerned because patient started having trembling sensation as well as urinary incontinence with high fever. They found that he had a fever 103. Patient has no cold-like symptoms. Family was concerned as patient apparently has been doing a lot of work in his garage with pesticides as well as other chemicals and this happened about 3 days ago and they were concerned this may be related to this. Patient denies any history of urinary infections in the past. He denies any pain of any kind or time to his neck and head. Per patient a discomfort is 4 out of 10. Denies any bowel movement issues. He does have a history of heart disease and takes no blood thinners at this time. Has an allergy to penicillin. He denies any other symptoms. No cough or runny nose. PFSH Past Medical History Hx Anticoagulant Therapy: Yes (ASA) Asthma: No Blood Disorders: No Anxiety: No Depression: No Cancer: No Cardiac Catheterization: Yes Cardiovascular Problems: Yes High Cholesterol: Yes Chemotherapy: No Chest Pain: Yes COPD: No Diabetes: No Diminished Hearing: Yes (right ear) Endocrine: No GERD: Yes Genitourinary: No Hepatitis: Yes (HEP A- 2003) Hypertension: Yes Immune Disorder: No Kidney Stones: Yes Musculoskeletal: No Neurologic: No Psychiatric: No Reproductive: No Respiratory: No Pneumonia: Yes Radiation Therapy: No Sleep Apnea: No Thyroid Disease: No Tetanus Vaccination: Unknown Influenza Vaccination: No ?: Not Past Surgical History Cardiac Surgery: Yes (CABG april 12, 2015) Coronary Artery Bypass Graft: Yes Tonsillectomy: Yes Other Surgery: Yes (lithotripsy-1979) Social History Alcohol Use: Yes (RARE) Tobacco Use: No Substance Use: No Allergies-Medications (Allergen,Severity, Reaction): Coded Allergies: penicillin G (Unverified Allergy, Severe, 10/06/17) shellfish derived (Unverified Allergy, Unknown, rash, 10/06/17) Uncoded Allergies: Silk Tape (Allergy, Severe, Irritation, 04/15/15) Reported Meds & Prescriptions Reported Meds & Active Scripts Active Cipro (Ciprofloxacin HCl) 500 Mg Tab 500 Mg PO BID 10 Days Reported Ibuprofen 800 Mg Tab 800 Mg PO Q8H PRN Atorvastatin (Atorvastatin Calcium) 40 Mg Tab 40 Mg PO HS Aspirin 81 (Aspirin) 81 Mg Tabdr 81 Mg PO DAILY Amlodipine (Amlodipine Besylate) 5 Mg Tab 5 Mg PO DAILY Lisinopril 10 Mg Tab 10 Mg PO DAILY Review of Systems Except as stated in HPI: all other systems reviewed are Neg Physical Exam Narrative GENERAL: Well-nourished, well-developed patient in no apparent distress. SKIN: Warm and dry. HEAD: Atraumatic. Normocephalic. EYES: Pupils equal and round reactive to light and accommodation. No scleral icterus. No injection or drainage. ENT: No nasal bleeding or discharge. Mucous membranes pink and moist. TMs are clear with no sign of infection or perforation. No mastoid tenderness. Ear canals are intact bilaterally. No lymphadenopathy. Nostril mucosa is red and moist with clear mucus noted. No sinus tenderness to palpation noted. Tonsils are not enlarged or swollen. No ulvua Deviation. Tongue is midline. NECK: Trachea midline. No JVD. No meningeal signs noted CARDIOVASCULAR: Regular rate and rhythm. RESPIRATORY: No accessory muscle use. Clear to auscultation. Breath sounds equal bilaterally. GASTROINTESTINAL: Abdomen soft, non-tender, nondistended. Hepatic and splenic margins not palpable. MUSCULOSKELETAL: Extremities without clubbing, cyanosis, or edema. No obvious deformities. Full range of motion of the upper and lower extremities bilaterally. 2+ pulses bilaterally. NEUROLOGICAL: Awake and alert. No obvious cranial nerve deficits. Motor grossly within normal limits. Five out of 5 muscle strength in the arms and legs. Normal speech. PSYCHIATRIC: Appropriate mood and affect; insight and judgment normal. Data Data Last Documented VS Vital Signs Date Time Temp Pulse Resp B/P (MAP) Pulse Ox O2 Delivery O2 Flow Rate FiO2 02/02/18 19:11 99.2 55 17 99 Room Air 02/02/18 16:45 120/58 (78) Orders Orders Sepsis Workup Initiated (02/02/18 ) Complete Blood Count With Diff (02/02/18 16:28) Comprehensive Metabolic Panel (02/02/18 16:28) Prothrombin Time / Inr (Pt) (02/02/18 16:28) Act Partial Throm Time (Ptt) (02/02/18 16:28) Lactic Acid Sepsis Protocol (02/02/18 16:28) Magnesium (Mg) (02/02/18 16:28) Lipase (02/02/18 16:28) Ckmb (Isoenzyme) Profile (02/02/18 16:28) Troponin I (02/02/18 16:28) Urinalysis - C+S If Indicated (02/02/18 16:28) Blood Culture (02/02/18 16:28) Chest, Single Ap (02/02/18 16:28) Blood Glucose (02/02/18 16:28) Ecg Monitoring (02/02/18 16:28) Iv Access Insert/Monitor (02/02/18 16:28) Oximetry (02/02/18 16:28) Oxygen Administration (02/02/18 16:28) Acetaminophen (Tylenol) (02/02/18 16:30) Ct Brain W/O Iv Contrast(Rout) (02/02/18 16:28) Sodium Chlor 0.9% 1000 Ml Inj (Ns 1000 M (02/02/18 16:39) Sodium Chlor 0.9% 1000 Ml Inj (Ns 1000 M (02/02/18 16:39) Ct Cerv Spine W/O Contrast (02/02/18 ) Influenzae A/B Antigen (02/02/18 17:39) CKMB (02/02/18 16:45) CKMB% (02/02/18 16:45) Cath For Specimen (02/02/18 18:08) Urine Culture (02/02/18 18:23) Ciprofloxacin 400 Mg Premix (Cipro 400 M (02/02/18 19:15) Ed Discharge Order (02/02/18 19:26) Labs Laboratory Tests Test 02/02/18 16:45 02/02/18 18:23 White Blood Count 16.2 TH/MM3 Red Blood Count 4.63 MIL/MM3 Hemoglobin 14.0 GM/DL Hematocrit 39.4 % Mean Corpuscular Volume 85.2 FL Mean Corpuscular Hemoglobin 30.3 PG Mean Corpuscular Hemoglobin Concent 35.5 % Red Cell Distribution Width 13.4 % Platelet Count 142 TH/MM3 Mean Platelet Volume 9.9 FL Neutrophils (%) (Auto) 90.1 % Lymphocytes (%) (Auto) 3.1 % Monocytes (%) (Auto) 6.5 % Eosinophils (%) (Auto) 0.1 % Basophils (%) (Auto) 0.2 % Neutrophils # (Auto) 14.6 TH/MM3 Lymphocytes # (Auto) 0.5 TH/MM3 Monocytes # (Auto) 1.1 TH/MM3 Eosinophils # (Auto) 0.0 TH/MM3 Basophils # (Auto) 0.0 TH/MM3 CBC Comment DIFF FINAL Differential Comment Prothrombin Time 10.4 SEC Prothromb Time International Ratio 1.0 RATIO Activated Partial Thromboplast Time 23.7 SEC Blood Urea Nitrogen 18 MG/DL Creatinine 1.43 MG/DL Random Glucose 109 MG/DL Total Protein 6.7 GM/DL Albumin 3.7 GM/DL Calcium Level 8.7 MG/DL Magnesium Level 1.7 MG/DL Alkaline Phosphatase 100 U/L Aspartate Amino Transf (AST/SGOT) 20 U/L Alanine Aminotransferase (ALT/SGPT) 23 U/L Total Bilirubin 0.8 MG/DL Sodium Level 140 MEQ/L Potassium Level 3.8 MEQ/L Chloride Level 107 MEQ/L Carbon Dioxide Level 23.5 MEQ/L Anion Gap 10 MEQ/L Estimat Glomerular Filtration Rate 49 ML/MIN Lactic Acid Level 1.0 mmol/L Total Creatine Kinase 155 U/L Creatine Kinase MB 2.7 NG/ML Troponin I 0.02 NG/ML Lipase 194 U/L Urine Color YELLOW Urine Turbidity CLEAR Urine pH 5.0 Urine Specific Magazine 1.020 Urine Protein TRACE mg/dL Urine Glucose (UA) NEG mg/dL Urine Ketones NEG mg/dL Urine Occult Blood NEG Urine Nitrite POS Urine Bilirubin NEG Urine Urobilinogen LESS THAN 2.0 MG/DL Urine Leukocyte Esterase MOD Urine RBC 3 /hpf Urine WBC 9 /hpf Urine Bacteria MOD /hpf Urine Hyaline Casts 2 /lpf Urine Mucus FEW /lpf Microscopic Urinalysis Comment CATH-CULTURE IND MDM Medical Decision Making Medical Screen Exam Complete: Yes Emergency Medical Condition: Yes Medical Record Reviewed: Yes Interpretation(s) CBC & BMP Diagram 02/02/18 16:45 Total Protein 6.7, Albumin 3.7, Calcium Level 8.7, Magnesium Level 1.7, Alkaline Phosphatase 100, Aspartate Amino Transf (AST/SGOT) 20, Alanine Aminotransferase (ALT/SGPT) 23, Total Bilirubin 0.8 UA positive for UTI lactic acid WNL Last Impressions Head CT 02/02/18 1628 Signed Impressions: Service Date/Time: Friday, February 02, 2018 16:51 - CONCLUSION: 1. Stable senescent changes with moderate small vessel ischemic periventricular white matter demyelination. 2. No acute intracranial abnormality. Davie Peck MD Chest X-Ray 02/02/18 1628 Signed Impressions: Service Date/Time: Friday, February 02, 2018 16:44 - CONCLUSION: 1. No acute abnormality or significant interval change. Davie Peck MD Cervical Spine CT 02/02/18 0000 Signed Impressions: Service Date/Time: Friday, February 02, 2018 16:51 - CONCLUSION: 1. No acute fracture or subluxation.\ 2. Degenerative spondylosis of the cervical spine most prominently at C4-6. Davie Peck MD Differential Diagnosis Sepsis versus head injury versus UTI versus pyelonephritis versus pneumonia versus ICH versus syncope Narrative Course 67-year-old male who presents to the ED for evaluation of fever and head injury.. Patient was properly examined and was found to have signs and symptoms which appear to be consistent with possible urinary infection. Also head injury. Labs and imaging order. Patient will start IV fluids and Tylenol for the fever. Labs and imaging showed positive urine and possible blood cell counts. Otherwise unremarkable. Patient was reassured. Patient does have some chronic changes to his neck and head. Patient was reassured. Patient's temperature did come down the medication given here. Patient was started on Cipro IV. Patient given a prescription for Cipro. Close follow-up with PCP. Drink plenty of fluids. See ED worsening symptoms. Diagnosis Primary Impression: Cystitis Patient Instructions: General Instructions Additional Instructions: Take medication as prescribed. Follow-up with PCP. See ED worsening symptoms. Drink plenty of fluids. Avoid extrenous activity for the next couple of days as you do have an infection and this requires rest. motrin and/or tylenol for fever. Med/Other Pt SpecificInfo: Prescription(s) given Scripts Ciprofloxacin (Cipro) 500 Mg Tab 500 MG PO BID for Infection for 10 Days, #20 TAB 0 Refills Prov: Fany Wolfe MD 02/02/18 Disposition: 01 DISCHARGE HOME Condition: Horacio Alejo Feb 02, 2018 17:33
[2018-02-02 17:37] LABS: AUTOMATED NEUTROPHIL # 14.6 TH/MM3 (1.8-7.7); BASOPHIL % 0.2 % (0.0-2.0); EOSINOPHIL % 0.1 % (0.0-4.0); HEMATOCRIT 39.4 % (39.0-51.0); LYMPH % 3.1 % (9.0-44.0); LYMPHOCYTE # 0.5 TH/MM3 (1.0-4.8); MEAN CELL VOLUME 85.2 FL (80.0-100.0); MEAN CORPUSCULAR HEMOGLOBIN 30.3 PG (27.0-34.0); MEAN CORPUSCULAR HGB CONC 35.5 % (32.0-36.0); MEAN PLATELET VOLUME 9.9 FL (7.0-11.0); MONO % 6.5 % (0.0-8.0); MONOCYTE # 1.1 TH/MM3 (0-0.9); NEUT % 90.1 % (16.0-70.0); PLATELET COUNT 142 TH/MM3 (150-450); RED BLOOD COUNT 4.63 MIL/MM3 (4.50-5.90); RED CELL DISTRIBUTION WIDTH 13.4 % (11.6-17.2); WHITE BLOOD COUNT 16.2 TH/MM3 (4.0-11.0)
[2018-02-02 17:51] LABS: PROTHROMBIN TIME - PATIENT 10.4 SEC (9.8-11.6)
[2018-02-02 17:56] LABS: ALBUMIN 3.7 GM/DL (3.4-5.0); AST (GOT) 20 U/L (15-37); BICARBONATE 23.5 MEQ/L (21.0-32.0); BLOOD UREA NITROGEN 18 MG/DL (7-18); CALCIUM 8.7 MG/DL (8.5-10.1); CHLORIDE 107 MEQ/L (98-107); CREATININE 1.43 MG/DL (0.60-1.30); GLOMERULAR FILTRATION RATE 49 ML/MIN (>89); GLUCOSE,RANDOM 109 MG/DL (74-106); MAGNESIUM 1.7 MG/DL (1.5-2.5); SODIUM (NA) 140 MEQ/L (136-145)
[2018-02-02 17:57] LABS: ALT (GPT) 23 U/L (12-78)
[2018-02-02 18:01] LABS: ALKALINE PHOSPHATASE 100 U/L (45-117); TOTAL BILIRUBIN ADULT 0.8 MG/DL (0.2-1.0); TOTAL PROTEIN 6.7 GM/DL (6.4-8.2); TROPONIN I 0.02 NG/ML (0.02-0.05)
[2018-02-02 19:05] LABS: BACTERIA, URINE MOD /hpf; BILIRUBIN, URINE NEG (NEG); BLOOD, URINE NEG (NEG); GLUCOSE,URINE NEG (NEG); HYALINE CAST, URINE 2 /lpf (RARE); KETONE, URINE NEG (NEG); MUCUS URINE FEW /lpf (OCC); NITRITE,URINE POS (NEG); URINE COLOR YELLOW (YELLW/STRAW); URINE LEUKOCYTE ESTERASE MOD (NEG)
[2018-02-02] MEDS ORDERED: CIPR-9 PO (19:09)
[2018-02-02 19:11] VITALS: PULSE 55; RESP 17; TEMP 99.2; O2SAT 99
[2018-02-02] MEDS ORDERED: CIPROFLOXACIN 400 MG PREMIX 200 ML IV ONE (19:15)
== END 2018-02-02 20:25 | disposition home or self-care (01) ==
LOC: NEPE 16:13
DX: N30.90 Cystitis, unspecified without hematuria (principal); B96.20 Unspecified Escherichia coli [E. coli] as the cause of diseases classified elsewhere; S09.90XA Unspecified injury of head, initial encounter; W19.XXXA Unspecified fall, initial encounter; E78.00 Pure hypercholesterolemia, unspecified; K21.9 Gastro-esophageal reflux disease without esophagitis; I10 Essential (primary) hypertension; I51.9 Heart disease, unspecified; Z95.1 Presence of aortocoronary bypass graft
CPT/HCPCS: 70450; 71045; 72125; 80053; 81001; 82550; 82552; 83605; 83690; 83735; 84484; 85025; 85610; 85730; 87040; 87077; 87086; 87186; 87804; 96361; 96365; 99285; J0744; J7030; P9612